=== PATIENT | male | born 1960 | race Caucasian/White ===

== ENCOUNTER 2017-01-20 10:11 | Emergency (ER) | payer MEDICARE, OTHER ==
[~2017-01-20 10:11] MED LIST: ASPIRIN81 MG PO; CRESTOR10 MG PO; NORVASC5 MG PO; ZESTRIL20 MG PO
[2017-01-20 11:43] LABS: BASOPHIL 0.5 % (0-2); EOSINOPHIL 7.6 % (0-5); HCT 40.8 % (42.0-52.0); HGB 13.6 g/dl (13.2-18.0); LYMPHOCYTE 27.6 % (15-48); MCH 29.4 pg (25.0-31.0); MCHC 33.3 g/dL (32.0-36.0); MCV 88.3 fL (78.0-100.0); MONOCYTE 14.2 % (0-12); MPV 9.1 fL (6.0-9.5); NEUTROPHIL 50.1 % (41-80); PLT 348 K/uL (150-400); RBC 4.62 M/uL (4.70-6.00); RDW 12.6 % (11.5-14.0); WBC 5.6 K/uL (4.0-10.5)
[2017-01-20 12:04] LABS: ALBUMIN 4.3 g/dL (3.5-5.0); BILIRUBIN - TOTAL 0.3 mg/dL (0.1-1.0); CREATININE 0.7 mg/dL (0.7-1.2); GLOBULIN (CALCULATION) 3.4 g/dL (2.2-4.2); POTASSIUM 4.4 mmol/L (3.5-5.1); TOTAL PROTEIN 7.7 g/dL (6.4-8.3)
[2017-01-20 12:05] LABS: LACTIC ACID 0.9 mmol/L (0.5-2.2)
== END 2017-01-20 12:49 | disposition home or self-care (01) ==
LOC: FER 10:11
PROVIDERS: Nurse Practitioner
DX: T81.4XXA Infection following a procedure, initial encounter (principal); E11.9 Type 2 diabetes mellitus without complications; I10 Essential (primary) hypertension; Z79.82 Long term (current) use of aspirin; Z79.899 Other long term (current) drug therapy
CPT/HCPCS: 36415; 73590; 80053; 83605; 85025; 87070; 87077; 87186; 87205; 99283

== ENCOUNTER → 2021-01-14 | Day surgery (SDC) | payer MEDICARE, OTHER ==
[~2021-01-14] VITALS: Ht 165.1 cm; Wt 71.2 kg
[~2021-01-14] MED LIST changes: +ASCORBIC ACID500 MG PO; +BRILINTA60 MG PO; +COREG 3.125M3.125 MG PO; +COZAAR 25MG TAB25 MG PO; +KEFLEX250 MG PO; +NORCO 5-325 TA1 EACH PO; +SYMBICORT 80-10.2 GM INH; +TAMIFLU 75MG CA75 MG PO; +VENTOLIN HFA IN18 GM INH; +VITAMIN D32000 UNIT PO; +ZINC50 M2 PO
== END | disposition home or self-care (01) ==
LOC: FAS 06:30
DX: D12.3 Benign neoplasm of transverse colon (principal); K63.5 Polyp of colon; K57.30 Diverticulosis of large intestine without perforation or abscess without bleeding; K64.4 Residual hemorrhoidal skin tags; K40.90 Unilateral inguinal hernia, without obstruction or gangrene, not specified as recurrent; I10 Essential (primary) hypertension; J44.9 Chronic obstructive pulmonary disease, unspecified; E78.00 Pure hypercholesterolemia, unspecified; I25.2 Old myocardial infarction; I25.10 Atherosclerotic heart disease of native coronary artery without angina pectoris; I25.5 Ischemic cardiomyopathy; M19.90 Unspecified osteoarthritis, unspecified site; I65.23 Occlusion and stenosis of bilateral carotid arteries; I11.0 Hypertensive heart disease with heart failure; I50.9 Heart failure, unspecified; Z86.010 Personal history of colon polyps; Z87.891 Personal history of nicotine dependence; Z95.5 Presence of coronary angioplasty implant and graft; Z88.8 Allergy status to other drugs, medicaments and biological substances; Z79.82 Long term (current) use of aspirin; Z79.899 Other long term (current) drug therapy
CPT/HCPCS: J2250; J2704; J7120

== ENCOUNTER 2021-07-04 07:14 | Emergency (ER) | payer OTHER ==
[2021-07-04 08:17] LABS: BASOPHIL 0.5 % (0-2); EOSINOPHIL 1.2 % (0-5); HCT 45.3 % (42.0-52.0); HGB 15.2 g/dl (13.2-18.0); LYMPHOCYTE 12.2 % (15-48); MCHC 33.6 g/dL (32.0-36.0); MCV 92.4 fL (78.0-100.0); MONOCYTE 8.1 % (0-12); MPV 9.8 fL (6.0-9.5); NEUTROPHIL 77.7 % (41-80); NRBC 0; PLT 217 K/uL (150-400); RDW 12.5 % (11.5-14.0)
[2021-07-04 08:18] LABS: BILIRUBIN NEGATIVE (NEGATIVE); BLOOD NEGATIVE Ery/uL (NEGATIVE); CLARITY CLEAR (CLEAR); COLOR YELLOW (YELLOW); GLUCOSE (U) NORMAL (NORMAL); LEUKOCYTES NEGATIVE Leu/uL (NEGATIVE); NITRITE NEGATIVE (NEGATIVE); PROTEIN NEGATIVE (NEGATIVE); SPECIFIC GRAVITY 1.015 (1.001-1.030); UROBILINOGEN 0.2 mg/dL (0.2-1.0)
[2021-07-04 08:21] LABS: MARIJUANA (THC) POSITIVE (NEGATIVE)
[2021-07-04 08:22] LABS: AMPHETAMINES NEGATIVE (NEGATIVE); BARBITURATES NEGATIVE (NEGATIVE); ECSTASY (MDMA) NEGATIVE (NEGATIVE); METHADONE NEGATIVE (NEGATIVE); OPIATES NEGATIVE (NEGATIVE); OXYCODONE NEGATIVE (NEGATIVE)
[2021-07-04 08:42] LABS: ALBUMIN 3.8 g/dL (3.4-5.0); BILIRUBIN - TOTAL 0.6 mg/dL (0.2-1.0); BUN/CREAT RATIO (CALC) 11.7 RATIO; CREATININE 0.77 mg/dL (0.67-1.17); GLOBULIN (CALCULATION) 3.2 g/dL; POTASSIUM 3.7 mmol/L (3.5-5.1)
[2021-07-04] MEDS ORDERED: MEDROL 4MG DOSEP4 MG PO (10:28)
[2021-07-04] MEDS ORDERED: NORCO 5-325 TA1 EACH PO (10:28)
[2021-07-04] MEDS ORDERED: ROBAXIN750 MG PO (10:28)
== END 2021-07-04 10:42 | disposition home or self-care (01) ==
LOC: FER 07:14
PROVIDERS: Internal Medicine
DX: M54.16 Radiculopathy, lumbar region (principal); I25.2 Old myocardial infarction; J44.9 Chronic obstructive pulmonary disease, unspecified; Z87.891 Personal history of nicotine dependence; Z88.8 Allergy status to other drugs, medicaments and biological substances
CPT/HCPCS: 36415; 72131; 80053; 80305; 81003; 83690; 84145; 85025; J1170; J2405